=== PATIENT | male | born 1995 | race Caucasian/White ===

== ENCOUNTER 2016-11-02 22:15 | Inpatient (IN) | payer OTHER ==
[~2016-11-02] VITALS: Ht 185.4 cm; Wt 144.0 kg
[2016-11-02 22:15] VITALS: O2SAT 98
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
[2016-11-02] MEDS ORDERED: IOHEXOL 350 MG/ML 10 ML VIAL (for RAD DIAG) IV ONE (22:42)
[2016-11-02 22:48] VITALS: O2SAT 98
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
[2016-11-02 22:52] LABS: AUTOMATED NEUTROPHIL # 9.4 TH/MM3 (1.8-7.7); BASOPHIL % 0.3 % (0.0-2.0); EOSINOPHIL # 0.3 TH/MM3 (0-0.4); EOSINOPHIL % 1.7 % (0.0-4.0); HEMATOCRIT 47.3 % (39.0-51.0); HEMO FLAGS DIFF FINAL; LYMPHOCYTE # 4.3 TH/MM3 (1.0-4.8); MEAN CELL VOLUME 82.7 FL (80.0-100.0); MEAN CORPUSCULAR HEMOGLOBIN 27.5 PG (27.0-34.0); MEAN CORPUSCULAR HGB CONC 33.3 % (32.0-36.0); MONO % 5.7 % (0.0-8.0); NEUT % 63.3 % (16.0-70.0); PLATELET COUNT 280 TH/MM3 (150-450); RED BLOOD COUNT 5.72 MIL/MM3 (4.50-5.90); WHITE BLOOD COUNT 14.9 TH/MM3 (4.0-11.0)
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
[2016-11-02 22:54] VITALS: BP 138/74; PULSE 94; RESP 18; O2SAT 97; O2SAT 98
[2016-11-02 22:54] LABS: I-STAT POTASSIUM 3.1 MMOL/L (3.5-4.9)
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
[2016-11-02 23:01] LABS: APTT (PATIENT) 26.5 SEC (24.3-30.1); PROTHROMBIN TIME - PATIENT 11.1 SEC (9.8-11.6)
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
[2016-11-02] MEDS ORDERED: HYDROmorphone HCL PF 1 MG/ML VIAL IV PUSH ONE (23:15)
[2016-11-02] MEDS ORDERED: ONDANSETRON HCL 4 MG/2 ML VIAL ONE (23:31)
[2016-11-02] MEDS ORDERED: LIDOCAINE HCL 1% PF 30 ML VIAL INFIL ONE (23:45)
[2016-11-02] MEDS ORDERED: ONDANSETRON HCL 4 MG/2 ML VIAL IV ONE (23:45)
[2016-11-03] VITALS (8 sets, daily range): BP systolic 104–143; BP diastolic 50–81; PULSE 80–100; RESP 16–18; TEMP 97.7–98.7; O2SAT 93–98
[2016-11-03] MEDS ORDERED: TETANUS/DIPHTHERIA TOXOID ADULT 0.5 ML VIAL IM ONE (00:15)
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
--- NOTE | 2016-11-03 02:45 | PD ---
Physical Exam Narrative I was asked by Dr. Ferrer to repair patient's lip and nasal bridge laceration. Please see her documentation for full H&P. Data Data Last Documented VS Vital Signs Date Time Temp Pulse Resp B/P Pulse Ox O2 Delivery O2 Flow Rate FiO2 11/02/16 22:54 94 18 138/74 98 Nasal Cannula 2 Orders I-Stat Profile (11/02/16 22:20) I-Stat Creatinine (11/02/16 22:20) Complete Blood Count With Diff (11/02/16 22:20) Prothrombin Time / Inr (Pt) (11/02/16 22:20) Act Partial Throm Time (Ptt) (11/02/16 22:20) Type And Screen (11/02/16 22:20) Alcohol (Ethanol) (11/02/16 22:20) Chest, Single Ap (11/02/16 22:20) Pelvis, Ap Only (Routine) (11/02/16 22:20) Ct Brain W/O Iv Contrast(Rout) (11/02/16 22:20) Ct Cerv Spine W/O Contrast (11/02/16 22:20) Ct Abd/Pel W Iv Contrast(Rout) (11/02/16 22:20) Ct Thorax/ Chest W Iv Contrast (11/02/16 22:20) Iv Access Insert/Monitor (11/02/16 22:20) Ecg Monitoring (11/02/16 22:20) Oximetry (11/02/16 22:20) Oxygen Administration (11/02/16 22:20) Hand, Limited (2vws) (11/02/16 ) Iohexol 350 Inj (Omnipaque 350 Inj) (11/02/16 22:42) Collar [place] (11/02/16 ) Hydromorphone Pf Inj (Dilaudid Pf Inj) (11/02/16 23:15) Ondansetron Inj (Zofran Inj) (11/02/16 23:45) Ondansetron Inj (Zofran Inj) (11/02/16 23:31) Lidocaine Pf 1% Inj (Xylocaine-Mpf 1% In (11/02/16 23:45) Tetanus/Diphtheria Tox Adult (Tetanus/Di (11/03/16 00:15) Hand, Limited (2vws) (11/03/16 ) Hand, Limited (2vws) (11/03/16 ) Fiberglass Thumb Spica Adult (11/03/16 ) Admit Order (Ed Use Only) (11/03/16 02:39) Consult Hand Surgery (11/03/16 ) Consult Ophthalmology (11/03/16 ) Labs Laboratory Tests Test 11/02/16 22:25 White Blood Count 14.9 TH/MM3 Red Blood Count 5.72 MIL/MM3 Hemoglobin 15.7 GM/DL Bedside Hemoglobin 16.7 G/DL Hematocrit 47.3 % Bedside Hematocrit 49.0 % Mean Corpuscular Volume 82.7 FL Mean Corpuscular Hemoglobin 27.5 PG Mean Corpuscular Hemoglobin 33.3 % Concent Red Cell Distribution Width 15.0 % Platelet Count 280 TH/MM3 Mean Platelet Volume 8.3 FL Neutrophils (%) (Auto) 63.3 % Lymphocytes (%) (Auto) 29.0 % Monocytes (%) (Auto) 5.7 % Eosinophils (%) (Auto) 1.7 % Basophils (%) (Auto) 0.3 % Neutrophils # (Auto) 9.4 TH/MM3 Lymphocytes # (Auto) 4.3 TH/MM3 Monocytes # (Auto) 0.8 TH/MM3 Eosinophils # (Auto) 0.3 TH/MM3 Basophils # (Auto) 0.0 TH/MM3 CBC Comment DIFF FINAL Differential Comment Prothrombin Time 11.1 SEC Prothromb Time International 1.0 RATIO Ratio Activated Partial 26.5 SEC Thromboplast Time Bedside Sodium 145 MMOL/L Bedside Potassium 3.1 MMOL/L Bedside Chloride 106 MMOL/L Bedside Blood Urea Nitrogen 10 MG/DL Bedside Creatinine 1.4 MG/DL Bedside Glucose 119 MG/DL Ethyl Alcohol Level 196 MG/DL Blood Type B NEGATIVE Antibody Screen NEGATIVE [facility] Supervised Visit with AVTAR: No Procedures Procedure Narrative LACERATION REPAIR LOCATION: Left upper lip without involvement of the vermilion border LENGTH: Approximately 1 cm NUMBER OF STITCHES/ARMANI: 3 simple interrupted REPAIR: Verbal consent was obtained. The area of the laceration was cleaned and prepped. The laceration was infiltrated with lidocaine without epi. The wound was copiously irrigated and explored without evidence of foreign body, bony involvement, ligament injury, tendon injury, or neurovascular injury. The wound was closed using 5-0 Vicryl. This was a single layer repair. A sterile dressing was applied by nurse. The patient was advised to keep the affected area as clean and dry as possible using soap and water. There were no complications. Patient tolerated the procedure well. LACERATION REPAIR LOCATION: Nasal bridge LENGTH: Approximately 1.5 cm J-shaped NUMBER OF STITCHES/ARMANI: 2 simple interrupted REPAIR: Verbal consent was obtained. The area of the laceration was cleaned and prepped. The laceration was infiltrated with lidocaine without epi. The wound was copiously irrigated and explored without evidence of foreign body, bony involvement, ligament injury, tendon injury, or neurovascular injury. The wound was closed using 5-0 Vicryl. This was a single layer repair. A sterile dressing was applied by nurse. The patient was advised to keep the affected area as clean and dry as possible using soap and water. There were no complications. Patient tolerated the procedure well. Masoud Alarcon Nov 03, 2016 02:45
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
[2016-11-03] MEDS ORDERED: NALOXONE HCL 0.4 MG/ML AMP IV PUSH PRN (03:30)
[2016-11-03] MEDS ORDERED: MAGNESIUM HYDROXIDE SUSP 30 ML CUP PO PRN (04:30)
[2016-11-03] MEDS ORDERED: ENALAPRILAT 1.25 MG/ML VIAL IV PRN (04:30)
[2016-11-03] MEDS ORDERED: ONDANSETRON HCL 4 MG/2 ML VIAL IV PRN (04:30)
[2016-11-03] MEDS ORDERED: METHOCARBAMOL 500 MG TAB PO PRN (04:30)
[2016-11-03] MEDS ORDERED: ACETAMINOPHEN 325 MG TAB PO PRN (04:30)
[2016-11-03] MEDS: PANTOPRAZOLE SODIUM 40 MG VIAL IVP SCH (05:02)
[2016-11-03] MEDS: POTASSIUM CHLORIDE 20 MEQ CONTROLLED RELEASE TAB PO SCH ×2 (09:00→19:54)
[2016-11-03] MEDS: DOCUSATE SODIUM 100 MG CAP PO SCH ×2 (09:00→19:54)
[2016-11-03] MEDS: BACITRACIN TOP OINT 15 GM TUBE TOP SCH ×2 (09:00→19:55)
[2016-11-03] MEDS: MORPHINE SULFATE 4 MG/ML INJ IV PUSH PRN ×3 (09:15→22:44)
[2016-11-03] MEDS ORDERED: ceFAZolin 2 GM PREMIX 50 ML ONE (11:13)
[2016-11-03] MEDS ORDERED: MIDAZOLAM HCL 2 MG/2 ML VIAL ONE (11:20)
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
[2016-11-03] MEDS ORDERED: NEOSTIGMINE 3 MG/3 ML SYR IV ONE (11:50)
[2016-11-03] MEDS ORDERED: PROPOFOL 200 MG/20 ML AMP IV ONE (11:50)
[2016-11-03] MEDS ORDERED: BUPIVACAINE HCL PF 0.5% 30 ML VIAL INFIL ONE (12:27)
[2016-11-03] MEDS ORDERED: BUPIVACAINE HCL PF 0.5% 30 ML VIAL ONE (12:31)
[2016-11-03] MEDS ORDERED: DO NOT ADM ANY ANTICOAGULANT DRUGS XX PRN (13:00)
[2016-11-03] MEDS ORDERED: *LABETALOL HCL 100 MG/20 ML VIAL PERIprocedural Use ONLY ONE (13:07)
--- NOTE | 2016-11-03 13:38 | PD.OP ---
Operative Report Preoperative Diagnosis: (1) Fracture of base of metacarpal of right thumb Postoperative Diagnosis: (1) Fracture of base of metacarpal of right thumb Procedure: closed reduction and internal fixation right thumb metacarpal base fracture with K-wires Anesthesia: general Surgeon: Ernesto Brush Water Purifier Operator(s): giovanni Operation and Findings: closed displaced proximal shaft/epibasal fracture right thumb Ernesto Brush MD Nov 03, 2016 13:38
--- NOTE | 2016-11-03 13:45 | RADRPT ---
EXAM DATE/TIME: 11/03/2016 12:29 [facility] COMPARISON: No previous studies available for comparison. INDICATIONS : ORIF of the right hand. MEDICAL HISTORY : Smoker. SURGICAL HISTORY : None. ENCOUNTER: Subsequent ACUITY: 2 days PAIN SCORE: Non-responsive. LOCATION: Right hand. FINDINGS: 9 images submitted. There is a surgical wire through the first metacarpal successful reducing the pro ximal metacarpal fracture. CONCLUSION: Successful ORIF. Sandro Vasquez MD on November 03, 2016 at 13:43 Board Certified Radiologist. This report was verified electronically.
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
[2016-11-03] MEDS ORDERED: DOCU1CAP39 PO (15:15)
[2016-11-03] MEDS ORDERED: MILKSUS PO (15:15)
[2016-11-03] MEDS: SODIUM CHLORIDE 0.9% FLUSH 5 ML FLUSH IVF PRN ×2 (17:30→19:55)
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
[2016-11-04] MEDS: MORPHINE SULFATE 4 MG/ML INJ IV PUSH PRN ×3 (03:29→11:36)
[2016-11-04 04:00] VITALS: BP 146/77; PULSE 89; RESP 18; TEMP 98.9; O2SAT 95
[2016-11-04] MEDS: PANTOPRAZOLE SODIUM 40 MG VIAL IVP SCH (04:42)
[2016-11-04 06:19] LABS: AUTOMATED NEUTROPHIL # 7.8 TH/MM3 (1.8-7.7); BASOPHIL % 0.1 % (0.0-2.0); EOSINOPHIL # 0.1 TH/MM3 (0-0.4); EOSINOPHIL % 0.9 % (0.0-4.0); HEMATOCRIT 39.2 % (39.0-51.0); HEMO FLAGS DIFF FINAL; LYMPH % 24.7 % (9.0-44.0); LYMPHOCYTE # 2.9 TH/MM3 (1.0-4.8); MEAN CELL VOLUME 81.9 FL (80.0-100.0); MEAN CORPUSCULAR HEMOGLOBIN 27.8 PG (27.0-34.0); MEAN CORPUSCULAR HGB CONC 33.9 % (32.0-36.0); MONO % 8.9 % (0.0-8.0); NEUT % 65.4 % (16.0-70.0); PLATELET COUNT 207 TH/MM3 (150-450); RED BLOOD COUNT 4.79 MIL/MM3 (4.50-5.90); RED CELL DISTRIBUTION WIDTH 14.8 % (11.6-17.2); WHITE BLOOD COUNT 11.9 TH/MM3 (4.0-11.0)
[2016-11-04 06:52] LABS: ALT (GPT) 27 U/L (12-78); ANION GAP 9 MEQ/L (5-15); AST (GOT) 20 U/L (15-37); BICARBONATE 27.9 MEQ/L (21.0-32.0); BLOOD UREA NITROGEN 10 MG/DL (7-18); CHLORIDE 104 MEQ/L (98-107); GLOMERULAR FILTRATION RATE 114 ML/MIN (>89); POTASSIUM 3.4 MEQ/L (3.5-5.1); SODIUM (NA) 141 MEQ/L (136-145)
[2016-11-04 06:53] LABS: ALKALINE PHOSPHATASE 101 U/L (45-117); TOTAL BILIRUBIN ADULT 0.7 MG/DL (0.2-1.0)
[2016-11-04 08:00] VITALS: BP 121/71; PULSE 82; RESP 18; TEMP 98.7; O2SAT 92
[2016-11-04] MEDS: DOCUSATE SODIUM 100 MG CAP PO SCH (09:00)
[2016-11-04] MEDS: BACITRACIN TOP OINT 15 GM TUBE TOP SCH (09:09)
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
[2016-11-04 10:08] VITALS: O2SAT 92
[2016-11-04] MEDS: SODIUM CHLORIDE 0.9% FLUSH 5 ML FLUSH IVF PRN (11:36)
[2016-11-04 12:00] VITALS: BP 131/77; PULSE 97; RESP 19; TEMP 98.5; O2SAT 93
[2016-11-04] MEDS ORDERED: LACTATED RINGER'S 1000 ML INJ 1,000 ML IV ONE (12:00)
[2016-11-04] MEDS ORDERED: ONDANSETRON HCL 4 MG/2 ML VIAL IV PUSH ONE (12:00)
[2016-11-04] MEDS ORDERED: PROPOFOL 200 MG/20 ML AMP IV ONE (12:00)
[2016-11-04] MEDS ORDERED: LACTATED RINGER'S 1000 ML IV SCH (14:30)
[2016-11-04] MEDS ORDERED: BALANCED SALT SOLN OPHT IRRIG 15 ML BTL ONE (14:30)
[2016-11-04] MEDS ORDERED: SODIUM CHLORID 0.9% 500 ML IV SCH (14:30)
[2016-11-04] MEDS ORDERED: TOBRAMYCIN/DEXAMETHASONE OPTH OINT 3.5 GM TUBE ONE (14:31)
[2016-11-04] MEDS ORDERED: LIDOCAINE 2%/EPINEPHrine 1:100,000 30ML MDV ONE (14:31)
[2016-11-04] MEDS ORDERED: MIDAZOLAM HCL 2 MG/2 ML VIAL ONE (14:36)
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
[2016-11-04] MEDS ORDERED: POTASSIUM CHLORIDE 20 MEQ CONTROLLED RELEASE TAB PO ONE (15:30)
[2016-11-04] MEDS ORDERED: DO NOT ADM ANY ANTICOAGULANT DRUGS XX PRN (15:35)
[2016-11-04] MEDS ORDERED: *morphine SULFATE 8 MG/ML PERIprocedure ONLY ONE (16:09)
[2016-11-04 16:45] VITALS: BP 126/60; PULSE 86; RESP 18; TEMP 98.6; O2SAT 94
--- NOTE | 2016-11-04 18:24 | PD.OP ---
Operative Report Date of Surgery: Nov 04, 2016 Preoperative Diagnosis: (1) Full thickness laceration of left eyelid Postoperative Diagnosis: (1) Full thickness laceration of left eyelid Procedure: repair of left upper eyelid margin laceration Anesthesia: MAC, local Surgeon: Chetna Eckert Driller Hand(s): none Operation and Findings: Pt was consented for surgery and prepped and draped in the usual sterile fashion. 2% lidocaine with epinephrine was injected in his left upper eyelid. 6- 0 silk suture was used to approximate the lid margin. 6-0 vicryl was used to close dermis. 6-0 plain gut interrupted was used to close the skin. Tobradex ointment was placed on the incision. Pt tolerated the procedure well and was sent to PACU in stable condition. He is to use Erythromycin ophthalmic ointment on the incision daily and follow up in 5-10 days to remove the silk suture on his eyelid. Chetna Eckert MD Nov 04, 2016 18:24
--- NOTE | 2016-11-04 18:27 | HHI.PR ---
Subjective Remarks s/p repair of left upper lid. Pt tolerated procedure well. Objective Vital Signs Date Time Temp Pulse Resp B/P Pulse Ox O2 Delivery O2 Flow Rate FiO2 11/04/16 16:45 98.6 86 18 126/60 94 11/04/16 16:31 98.4 90 20 152/78 92 Room Air 11/04/16 16:30 90 20 152/78 92 Room Air 11/04/16 16:15 86 20 151/74 92 Room Air 11/04/16 16:00 86 20 160/76 92 Room Air 11/04/16 15:45 82 20 153/79 92 Room Air 11/04/16 15:33 98.4 107 20 150/74 93 Room Air 11/04/16 12:00 98.5 97 19 131/77 93 11/04/16 10:08 92 Nasal Cannula 2.00 11/04/16 08:00 98.7 82 18 121/71 92 11/04/16 04:00 98.9 89 18 146/77 95 11/03/16 23:15 97.9 87 17 134/81 93 11/03/16 20:00 98.7 82 16 133/69 96 11/03/16 20:00 95 Nasal Cannula 2.00 I/O 11/03/16 11/03/16 11/03/16 11/04/16 11/04/16 11/04/16 07:00 15:00 23:00 07:00 15:00 23:00 Intake Total 0 ml 960 ml 720 ml 0 ml 950 ml Output Total 10 ml Balance 0 ml 950 ml 720 ml 0 ml 950 ml Intake Oral 0 ml 360 ml 720 ml 0 ml IV Total 350 ml Other 600 ml 600 ml Output Estimated Blood Loss 10 ml # Voids 2 4 1 1 2 # Bowel Movements 0 0 0 0 Result Diagram: 11/04/16 0554 11/04/16 0554 Objective Remarks interrupted sutures on left upper eyelid intact Assessment and Plan Problem List: (1) Full thickness laceration of left eyelid Status: Acute Plan: s/p repair today. Ok to discharge. Follow up with ophthalmology in 5-10 days to remove silk suture on eyelid. Erythromycin ointment to left eyelid BID x 5 days. Chetna Eckert MD Nov 04, 2016 18:27
[2016-11-04] MEDS ORDERED: PERC5TAB12 PO (19:03)
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
[2016-11-04 19:24] VITALS: O2SAT 93
[2016-11-04] MEDS ORDERED: INSULIN HUMAN REGULAR 1,000 UNITS/10 ML VIAL SQ PRN (23:45)
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
== END 2016-11-04 19:30 | disposition home or self-care (01) | DRG 513 ==
LOC: NEPI 22:15 → EDBD 11-03 02:40 → NEDA 11-03 02:40 → N06B 11-03 05:07
PROVIDERS: ADMIT Surgery; ATTEND Surgery
PROC: 0CQ0XZZ Repair Upper Lip, External Approach (ICD-10-PCS; 2016-11-03)
PROC: 0HQ1XZZ Repair Face Skin, External Approach (ICD-10-PCS; 2016-11-03)
PROC: 0PSP34Z Reposition Right Metacarpal with Internal Fixation Device, Percutaneous Approach (ICD-10-PCS; principal; 2016-11-03 11:20)
PROC: 08QPXZZ Repair Left Upper Eyelid, External Approach (ICD-10-PCS; 2016-11-04)
DX: S62.231A Other displaced fracture of base of first metacarpal bone, right hand, initial encounter for closed fracture (principal); Z68.41 Body mass index [BMI] 40.0-44.9, adult; S01.112A Laceration without foreign body of left eyelid and periocular area, initial encounter; S01.21XA Laceration without foreign body of nose, initial encounter; E87.6 Hypokalemia; S01.511A Laceration without foreign body of lip, initial encounter; S02.2XXA Fracture of nasal bones, initial encounter for closed fracture; V43.62XA Car passenger injured in collision with other type car in traffic accident, initial encounter; Y90.6 Blood alcohol level of 120-199 mg/100 ml; Z72.89 Other problems related to lifestyle; F17.210 Nicotine dependence, cigarettes, uncomplicated; E66.9 Obesity, unspecified
CPT/HCPCS: 12011; 26605; 70450; 71010; 71260; 72125; 72170; 73120; 73130; 74177; 76000; 80053; 80307; 82435; 82565; 82947; 84132; 84295; 84520; 85025; 85610; 85730; 86850; 86900; 86901; 90471; 90714; 94150; 96374; 96375; 99291; C9113; G0390; J0690; J1170; J2250; J2270; J2405; J2710; J3010; J7120; L0150; L3808; Q9967